=== PATIENT | male | born 1955 | race Caucasian/White ===

== ENCOUNTER 2017-02-17 10:00 | Observation (INO) | payer BC ==
--- NOTE | 2017-07-16 06:28 | PDHPUP ---
History & Physical Update H&P update statement: This history and physical update is based on an assessment of the patient which was completed after admission or registration (within 24 hours), but prior to the surgery/procedure. H&P update: H&P reviewed & patient examined, no change in patient's condition since H&P completed
[2017-07-16] MEDS ORDERED: ACETAMINOPHEN 500 MG TAB PO ONE (06:33)
[2017-07-16] MEDS ORDERED: GABAPENTIN 300 MG CAP PO ONE (06:33)
[2017-07-16] MEDS ORDERED: ceFAZolin 2 GM/DEXTROSE 100 ML IV ONE (06:33)
[2017-07-16] MEDS ORDERED: LR 1,000 ML IV ONE (06:34)
[2017-07-16] MEDS ORDERED: LACTULOSE 20 GM/30 ML UDCUP PO PRN (07:23)
[2017-07-16] MEDS ORDERED: diphenhydrAMINE 25 MG CAP PO PRN (07:23)
[2017-07-16] MEDS ORDERED: BISACODYL 10 MG SUPP PR PRN (07:23)
[2017-07-16] MEDS ORDERED: MAGNESIUM HYDROXIDE 30 ML UDCUP PO PRN (07:23)
[2017-07-16] MEDS ORDERED: HYDROmorphONE/DILAUDID 1 MG/ML INJ IVP PRN (07:23)
[2017-07-16] MEDS ORDERED: METHOCARBAMOL 750 MG TAB PO PRN (07:23)
[2017-07-16] MEDS ORDERED: oxyCODONE IR 5 MG TAB PO PRN (07:23)
[2017-07-16] MEDS ORDERED: POLYETHYLENE GLYCOL 3350 17 GM PKT PO PRN (07:23)
[2017-07-16] MEDS ORDERED: ONDANSETRON DISINTEGRATING 4 MG TAB PO PRN (07:23)
[2017-07-16] MEDS ORDERED: ONDANSETRON 4 MG/2 ML VIAL IVP PRN ×2 (07:23→09:06)
--- NOTE | 2017-07-16 07:24 | PDANEPAE ---
ANE History of Present Illness 62 year old male w/ PMHx of HTN, BPH, former smoker and bilateral lower extremity numbness and tingling presents for L4/5 & L5/S1 spine surgery. ANE Past Medical History - Cardiovascular History Hx Hypertension: Yes Hx Arrhythmias: No Hx Chest Pain: No Hx Coronary Artery / Peripheral Vascular Disease: No Hx CHF / Valvular Disease: No Hx Palpitations: No - Pulmonary History Hx COPD: No Hx Asthma/Reactive Airway Disease: No Hx Recent Upper Respiratory Infection: No Hx Oxygen in Use at Home: No Hx Sleep Apnea: No Sleep Apnea Screening Result - Last Documented: Positive - Neurologic History Hx Cerebrovascular Accident: No Hx Seizures: No Hx Dementia: No - Endocrine History Hx Diabetes: No Hypothyroid: No Hyperthyroid: No Obesity: no - Renal History Hx Renal Disorders: Yes Renal History Comment: BPH - Liver History Hx Hepatic Disorders: No - Neurological & Psychiatric Hx Hx Neurological and Psychiatric Disorders: No - Other Health History Other Health History: AIDEN LE N/T - Chronic Pain History Chronic Pain: Yes (LOWER BACK AND N/T AIDEN LE) - Surgical History Prior Surgeries: HERNIA BABY. TONSILLECTOMY ANE Review of Systems Review of Systems: - Exercise capacity METS (RN): 6 METS - Systems Neurological: Reports: numbness, tingling (bilateral lower extremity numbness and tingling. Reports right leg worse than left.) ANE Patient History - Allergies Allergies/Adverse Reactions: No Known Allergies Allergy (Unverified 07/04/17 10:27) - Home Medications Home medications: home medication list seen and reviewed Home Medications: Atorvastatin Calcium DAILY 07/04/17 [Last Taken 07/15/17] Dutasteride-Tamsulosin 0.5-0.4 DAILY 07/04/17 [Last Taken 07/15/17] Herbals/Supplements -Info Only DAILY 07/04/17 [Last Taken 1 Week Ago ~07/09/17] Ibuprofen PRN 07/04/17 [Last Taken 1 Week Ago ~07/09/17] Lisinopril DAILY 07/04/17 [Last Taken 07/16/17 05:00] - NPO status NPO Status: no food or drink >8 hours NPO Since - Liquids (Date): 07/15/17 NPO Since - Liquids (Time): 22:00 NPO Since - Solids (Date): 06/05/18 NPO Since - Solids (Time): 18:00 - Anes Hx Anes Hx: no prior problems - Smoking Hx Smoking Status: Former smoker Marijuana use: No - Alcohol Use Alcohol Use: None - Family Anes Hx Family Anes Hx: neg - N/A Family Hx Anesthesia Complications: NEG ANE Labs/Vital Signs - Vital Signs Vital Signs: reviewed preoperatively; see RN documention for details Blood Pressure: 124/81 Heart Rate: 64 Respiratory Rate: 18 O2 Sat (%): 93 Height: 172.72 cm Weight: 72.575 kg ANE Physical Exam - Airway Neck exam: FROM Mallampati Score: Class 2 Mouth exam: poor dentition Mouth image: 1 - Capped/veneers - Pulmonary Pulmonary: no respiratory distress - Cardiovascular Cardiovascular: regular rate and rhythym - ASA Status ASA Status: II ANE Anesthesia Plan Anesthesia Plan: general endotracheal anesthesia Total IV Anesthesia: No
[2017-07-16] MEDS ORDERED: NS 1,000 ML IV SCH (07:30)
[2017-07-16] MEDS ORDERED: MIDAZOLAM 2 MG/2 ML VIAL IVP ONE (07:36)
[2017-07-16] MEDS ORDERED: BUPIVACAINE 0.25% 30 ML SDV ONE (07:39)
[2017-07-16] MEDS ORDERED: DEPO METHYLPREDNISOLONE 40 MG/ML SDV ONE (07:39)
[2017-07-16] MEDS ORDERED: EPINEPHrine 1 MG/ML INJ ONE (07:39)
[2017-07-16] MEDS ORDERED: BACITRACIN 50,000 UNITS/10 ML SYR IRR ONE (07:39)
[2017-07-16] MEDS ORDERED: THROMBIN (BOVINE) 5,000 UNIT VIAL TP ONE (07:39)
[2017-07-16] MEDS ORDERED: CHLORHEXIDINE GLUC HIBICLENS 118 ML BTL TP ONE (07:39)
[2017-07-16] MEDS ORDERED: PROPOFOL 200 MG/20 ML VIAL ONE (07:54)
[2017-07-16] MEDS ORDERED: REMIFENTANIL HCL 1 MG VIAL ONE (07:54)
[2017-07-16] MEDS ORDERED: PROPOFOL/EMULSION 500 MG/50 ML BOTTLE IV ONE (07:54)
[2017-07-16] MEDS ORDERED: fentaNYL 100 MCG/2 ML INJ ONE ×2 (07:57→10:44)
[2017-07-16] MEDS ORDERED: PHENYLEPHRINE 10 MG/ML SDV ONE (08:31)
[2017-07-16] MEDS ORDERED: FAMOTIDINE 20 MG TAB PO SCH (09:00)
[2017-07-16] MEDS ORDERED: SENNOSIDES/DOCUSATE SODIUM TAB PO SCH (09:00)
[2017-07-16] MEDS ORDERED: epHEDrine SULFATE 10 MG/ML SYR IVP PRN (09:06)
[2017-07-16] MEDS ORDERED: LR 500 ML IV PRN (09:06)
[2017-07-16] MEDS ORDERED: PHENYLEPHRINE HCL 100 MCG/ML SYR IVP PRN (09:06)
[2017-07-16] MEDS ORDERED: NALOXONE HCL 0.4 MG/ML INJ IVP PRN (09:06)
--- NOTE | 2017-07-16 10:21 | POSTOPPROG ---
Post Op Note Date of Operation: 07/16/17 Surgeon: Kaylee Colmenares [employer] Dispatcher: Kandy Anesthesiologist: Cristian Anesthesia: GET(General Endotracheal), Local (Specify) Pre-op Diagnosis: LRS L4/5 Post-op Diagnosis: s/p right L4/5 LRD Indication: lumbar stenosis Procedure: right L4/5 LRD Inf/Abcess present in the surg proc area at time of surgery?: No Depth: Deep Incisional (Fascial) EBL: 50-100 Total fluids administered: see anesthesia record
--- NOTE | 2017-07-16 10:25 | SOAPPROG ---
SOAP Progress Note Assessment/Plan: Post Op Visit: S: Awake and alert. NAD. Pt with some expected lower back pain O: AFVSS/PERRLA/EOMI no droop CN 2-12 grossly intact +lt touch 5/5 BUE/BLE = CDI A/P: 62 yo male that is s/p right L4/5 LRD -orders in place -call with any questions or concerns -take medications as directed -Pt seen by Dr Colmenares as well -admit to floor and may dc later today if does well 07/16/17 10:21 Objective: Vital Signs Temp Pulse Resp BP Pulse Ox 36.5 C 64 18 124/81 H 93 07/16/17 06:48 07/16/17 07:36 07/16/17 07:36 07/16/17 07:36 07/16/17 07:36 ICD10 Worksheet Patient Problems: Problems Problem Status Onset Lumbar radicular pain Acute Lumbar stenosis Acute - ICD10 Problem Qualifiers (1) Lumbar stenosis (2) Lumbar radicular pain
[2017-07-16] MEDS ORDERED: HYDROmorphONE/DILAUDID 1 MG/ML INJ ONE (10:44)
[2017-07-16] MEDS: fentaNYL 100 MCG/2 ML INJ IVP PRN ×2 (10:46→11:02)
[2017-07-16] MEDS ORDERED: HYDROmorphONE/DILAUDID 2 MG/ML INJ ONE (10:55)
[2017-07-16] MEDS: HYDROmorphONE/DILAUDID 2 MG/ML INJ IVP PRN ×2 (10:56→11:13)
--- NOTE | 2017-07-16 11:14 | GOP ---
[f rep st] OPERATIVE REPORT DATE OF OPERATION: 07/16/2017 SURGEON: Martha Colmenares MD ELECTRONIC COMPONENT PROCESSOR: Schuyler Gaitan PA-C. PREOPERATIVE DIAGNOSIS: Right lateral recess stenosis L4-5, L5-S1; right lumbosacral radiculopathy; lumbar spondylosis; spondylolisthesis L3-4; lumbar degenerative disk disease at L3-4, L4-5, L5-S1; ch ronic axial low back pain. POSTOPERATIVE DIAGNOSIS: Right lateral recess stenosis L4-5, L5-S1; right lumbosacral radiculopathy; lumbar spondylosis; spondylolisthesis L3-4; lumbar degenerative disk disease at L3-4, L4-5, L5-S1; c hronic axial low back pain. PROCEDURE PERFORMED: Right L4-5, L5-S1 hemilaminotomy with medial facetectomy and a right lateral re cess decompression for the right L5 and S1 nerve roots with foraminotomies at both levels ([id number], [id number]), microscope. FINDINGS: ESTIMATED BLOOD LOSS: 25 cc. INDICATIONS: The patient is a mature adult male with a greater than 30-year history of axial low rayna k pain that he has dealt with for many, many years, increasingly over the last year. He has develope d radiating pain into the right leg in S1 distribution down the hamstrings as well as in the lateral thigh in an L5 type distribution. His MRI, while relatively stable, demonstrates some right lateral recess stenosis, the worst on the right at L5-S1. There is also evidence of similar lateral recess s tenosis on the right at L4-5. There was some associated exiting neural foraminal stenosis at L4-5, L 5-S1. There is a mild spondylolisthesis at L3-4 and spinal stenosis at that level, but I could not a ttribute any symptoms to the nerves at L3-4. I suggested simple outpatient minimally-invasive right lateral recess decompression at L4-5, L5-S1 done via midline approach in the hopes of eliminating the increasingly disabling right leg pain, but he and I discussed on more than 1 occasion the treatment of axial low back pain would require larger surgery. He did have bilateral axial low back pain and h e knew that the treatment of this could include fusion surgery at L3-4, L4-5, and L5-S1. It was my h ope that a simple decompression alone on the right-hand side would take away the disabling radiating pain, but I did not think that it would be all that useful for the axial low back pain. The risk of nerve injury, spinal fluid leak, worsening symptoms, infection was discussed. He knew there was a ch ance that he may ultimately require fusion of the lumbar spine, but this was the most reasonable smal ler surgery that has a chance of success. He accepted the risks and he wanted us to proceed. DESCRIPTION OF PROCEDURE: The patient was taken to the operating room, placed in supine position. G eneral anesthesia was begun. He was flipped prone onto the Melquiades frame. Care was taken to pad all points of contact. His back was sterilely prepped and draped by the surgeon. A localizing x-ray was taken. We made an 18 mm incision above the L4-5 and L5-S1 interspace. The subcutaneous tissue was dissected using Bovie cautery down to the fascia and a subperiosteal dissection was made down the julian pietro of L5 and the inferior lamina of L4. A localizing x-ray was taken. We then began by drilling th e right L5-S1 hemilaminotomy with medial facetectomy. We opened the ligamentum flavum and decompress ed the lateral access aspect of the thecal sac. There was actually very severe foraminal stenosis. He had a deep lateral recess but we localized the S1 root above the L5-S1 disk and then decompressed this nerve all the way down to the lower pedicle of S1. There was very severe stenosis right above t he L5-S1 disk. There was no evidence of free disk fragment herniation, however. There was also exit ing foraminal stenosis for the L5 root at this level, and we used banana Kerrisons to decompress the neural foramina as well and we were able to pass a ball-tip probe into the foramina without difficult y at the conclusion of the procedure. We then adjusted our retractor and went to the L4-5 level, whe re we did likewise and drilled right L4-5 hemilaminotomy with a medial facetectomy and decompressed t he L5 root at the L4-5 level. There was lateral recess stenosis at L4-5 and some foraminal stenosis, which we again corrected with banana Kerrisons into the neural foramen on the right-hand side at L4- 5, but the lateral recess stenosis was not as severe as what we saw at L5-S1. We then irrigated with antibiotic saline solution and shot an x-ray demonstrating the extent of our decompression. We then closed the incision in multiple layers using Vicryl sutures after we had placed some Depo-Medrol ove r the right L5 and S1 roots. There were no complications. Steri-Strips and a dressing had been appl ied to the skin. The patient was reversed from anesthesia, extubated, and transferred to recovery ro in stable condition. COMPLICATIONS: None. /[id number]/MODL
[2017-07-16] MEDS ORDERED: ceFAZolin 2 GM/DEXTROSE 100 ML IV SCH (14:00)
[2017-07-16] MEDS ORDERED: ACETAMINOPHEN 500 MG TAB PO SCH (14:00)
[2017-07-16 15:09] VITALS: BP 109/70
--- NOTE | 2017-07-16 16:42 | POSTANESTH ---
Post Anesthetic Evaluation Cardiovascular Status: Normal, Stable, Similar to Pre-Op Cond Respiratory Status: Normal, Stable, Similar to Pre-op Cond. Level of Consciousness/Mental Status: Can Participate in Eval, Alert and Oriented Pain Control: Adequate, Prn Tx Ordered Nausea/Vomiting Control: Adequate, Prn Tx Ordered Complications Possibly Related to Anesthesia: None Noted
[2017-07-17] MEDS ORDERED: MULTIVITAMINS 1 EACH TAB PO SCH (09:00)
[2017-07-17] MEDS ORDERED: LISINOPRIL 10 MG TAB PO SCH (09:00)
[2017-07-17] MEDS ORDERED: DUTASTERIDE 0.5 MG CAP PO SCH (09:00)
[2017-07-17] MEDS ORDERED: ATORVASTATIN CALCIUM 20 MG TAB PO SCH (09:00)
[2017-07-19] MEDS ORDERED: ENOXAPARIN 40 MG/0.4 ML SYR SC SCH (09:00)
== END 2017-07-16 17:20 | disposition home or self-care (01) ==
LOC: EDBD 07-14 07:30 → F3N 07-16 06:18
PROVIDERS: ADMIT Neurological Surgery; ATTEND Neurological Surgery
PROC: BR191ZZ Fluoroscopy of Lumbar Spine using Low Osmolar Contrast (ICD-10-PCS; principal; 2017-07-16 08:15)
PROC: 00NY0ZZ Release Lumbar Spinal Cord, Open Approach (ICD-10-PCS; principal; 2017-07-16 08:15)
PROC: 8E0WXBZ Computer Assisted Procedure of Trunk Region (ICD-10-PCS; principal; 2017-07-16 08:15)
DX: M48.061 Spinal stenosis, lumbar region without neurogenic claudication (principal); M51.16 Intervertebral disc disorders with radiculopathy, lumbar region; M43.16 Spondylolisthesis, lumbar region; I10 Essential (primary) hypertension; N40.0 Benign prostatic hyperplasia without lower urinary tract symptoms; Z87.891 Personal history of nicotine dependence
CPT/HCPCS: 63047; 63048; 76001; 97161; G0378; J0171; J0690; J1030; J1170; J2250; J2370; J2704; J3010